=== PATIENT | female | born 1990 | race Caucasian/White ===

== ENCOUNTER 2016-08-12 11:02 | Emergency (ER) | payer OTHER ==
[~2016-08-12] VITALS: Wt 43.0 kg
--- NOTE | 2016-08-12 12:20 | RADRPT ---
PROCEDURE: XR right shoulder. CLINICAL INDICATION: Fall with pain. TECHNIQUE: AP Internal and external rotation views of the right shoulder were performed. COMPARISON: No. FINDINGS: There is a displaced oblique fracture to the distal fifth of the right clavicular diaphysis. The AC joint, glenohumeral joint and scapular are intact. The humeral head is anatomically aligned and in tact. IMPRESSION: 1. Oblique fracture to the lateral 1 fifth of the right clavicle with 1 bone width of cephalad displ acement of the medial fracture fragment. RPTAT:AAJJ Physician Dane Date Time Electronically viewed and signed by Physician Dane on 08/12/2016 12:20 JM/
--- NOTE | 2016-08-12 12:21 | RADRPT ---
PROCEDURE: Right clavicle series CLINICAL INDICATION: trauma, fall. Pain TECHNIQUE: 2 views. COMPARISON: None FINDINGS: Displaced and overriding fracture of the mid to distal right clavicle is noted. The acromioclavicular joint appears intact. IMPRESSION: 1. Displaced and overriding fracture of the right clavicle. RPTAT: HH .Gerson Steve MD, MD Date Time Electronically viewed and signed by .Gerson Steve MD, on 08/12/2016 12:21 .G/
--- NOTE | 2016-08-12 12:39 | ERD ---
ER Documentation Chief Complaint Date/Time DATE: 08/12/16 TIME: 12:35 Chief Complaint NECK/COLLAR PAIN AFTER FALL HPI This is a 26-year-old female who presents to the emergency department today complaining of right shoulder and collarbone pain after a fall yesterday afternoon. Patient states she was playing with her dog it with a basketball and tripped over the dog and the ball. States that she took Motrin approximately 730 this morning. Denies any previous trauma. Denies any fevers or chills. ROS All systems reviewed and are negative except as per history of present illness. Medications Home Meds Active Scripts Naproxen* (Naprosyn*) 500 Mg Tablet, 500 MG PO BID Y for PAIN AND/OR INFLAMMATION, #30 TAB Prov:DENA CORONADO PA-C 08/12/16 Hydrocodone/Acetaminophen (Jonancy 5-325 Tablet) 1 Each Tablet, 1 TAB PO Q6H Y for PAIN, #20 TAB Prov:DENA CORONADO PA-C 08/12/16 Allergies Allergies: Coded Allergies: No Known Allergy (Unverified , 08/12/16) PMhx/Soc Medical and Surgical Hx: pt denies Medical Hx History of Surgery: Yes (breast augmentation) Anesthesia Reaction: No Hx Neurological Disorder: No Hx Respiratory Disorders: No Hx Cardiac Disorders: No Hx Psychiatric Problems: No Hx Miscellaneous Medical Probl: No Hx Alcohol Use: No Hx Substance Use: No Hx Tobacco Use: No Smoking Status: Never smoker Physical Exam Vitals Vital Signs Date Time Temp Pulse Resp B/P Pulse Ox O2 Delivery O2 Flow Rate FiO2 08/12/16 11:05 98.0 76 18 105/71 99 Physical Exam Const: No acute distress Head: Atraumatic Eyes: Normal Conjunctiva ENT: Normal External Ears, Nose and Mouth. Neck: Full range of motion..~ No meningismus.. Resp: Clear to auscultation bilaterally Cardio: Regular rate and rhythm, no murmurs Skin: No petechiae or rashes. Abrasion with mild ecchymosis right clavicle MSK: Right shoulder with AC elevation with tenderness palpation. No skin tenting. Right clavicle with obvious deformity. Diffusely tender to palpation. Unable to assess shoulder range of motion secondary to pain. Pulses 2+. Distal neurovascularly intact. Neur: Awake and alert Psych: Normal Mood and Affect Results 24 hrs Current Medications Medications (Trade) Dose Ordered Sig/Cait Route PRN Reason Start Time Stop Time Status Last Admin Dose Admin Acetaminophen/ Hydrocodone Bitart (Jonancy (5/325)) 1 tab ONCE ONCE PO 08/12/16 13:00 08/12/16 13:01 DIAGNOSTIC IMAGING REPORT Patient: VINITA CASE : 1990 Age: 26 Sex: F MR #: [id number] DOS: 08/12/16 0000 Ordering MD: DENA CORONADO PA-C Location: [facility] Room/Bed: PROCEDURE: Right clavicle series CLINICAL INDICATION: trauma, fall. Pain TECHNIQUE: 2 views. COMPARISON: None FINDINGS: Displaced and overriding fracture of the mid to distal right clavicle is noted. The acromioclavicular joint appears intact. IMPRESSION: 1. Displaced and overriding fracture of the right clavicle. RPTAT: HH .Gerson Steve MD, MD Date Time Electronically viewed and signed by .Gerson Steve MD, MD on 08/12/2016 12: 21 .G/ CC: DENA CORONADO PA-C DIAGNOSTIC IMAGING REPORT Patient: VINITA CASE : 1990 Age: 26 Sex: F MR #: [id number] DOS: 08/12/16 0000 Ordering MD: DENA CORONADO PA-C Location: [facility] Room/Bed: PROCEDURE: XR right shoulder. CLINICAL INDICATION: Fall with pain. TECHNIQUE: AP Internal and external rotation views of the right shoulder were performed. COMPARISON: No. FINDINGS: There is a displaced oblique fracture to the distal fifth of the right clavicular diaphysis. The AC joint, glenohumeral joint and scapular are intact. The humeral head is anatomically aligned and intact. IMPRESSION: 1. Oblique fracture to the lateral 1 fifth of the right clavicle with 1 bone width of cephalad displacement of the medial fracture fragment. RPTAT:AAJJ Kwaku Hwang Physician Date Time Electronically viewed and signed by Kwaku Hwang Physician on 08/12/2016 12:20 JM/ CC: DENA CORONADO PA-C Procedures/MDM This is a 26-year-old female who presents the emergency department today complaining of right shoulder and clavicle plain after sustaining a fall yesterday in which she was playing with her dog and a basketball and tripped over and fell. Given the patient's physical exam and trauma I did obtain images Per the radiology report images of the right clavicle show a displaced and overriding fracture of the right clavicle. The AC joint appears intact. Images of the right shoulder show an oblique fracture to the lateral 1/5 of the right clavicle with one bone width of cephalic displacement of the medial fracture fragment. Patient was placed in a sling here and was given Jonancy. I have explained the results to the patient and her I will give her a prescription for Jonancy and Naprosyn for home At this time the patient is stable for discharge and outpatient management. Patient should follow up with their PCP in the next 1-2 days for referral to orthopedic. They may return to the emergency department sooner for any persistent or worsening of symptoms. Patient understood and agreed with the plan. Departure Diagnosis: Primary Impression: Clavicle fracture Encounter type: initial encounter Clavicle location: shaft Fracture type: closed Fracture alignment: displaced Laterality: right Qualified Code: S42.021A - Closed displaced fracture of shaft of right clavicle, initial encounter Condition: Fair DENA CORONADO PA-C Aug 12, 2016 12:38
[2016-08-12] MEDS ORDERED: NAPR-260 PO (12:51)
[2016-08-12] MEDS ORDERED: HYDR-906 PO (12:51)
[2016-08-12] MEDS ORDERED: HYDROCODONE/APAP (5/325) TAB PO ONE (13:00)
== END 2016-08-12 13:28 | disposition home or self-care (01) ==
LOC: FTE 11:02
DX: S42.021A Displaced fracture of shaft of right clavicle, initial encounter for closed fracture (principal); W01.198A Fall on same level from slipping, tripping and stumbling with subsequent striking against other object, initial encounter; Y92.9 Unspecified place or not applicable
CPT/HCPCS: 73000; 73030; Z7502; Z7610